=== PATIENT | female | born 1970 | race Two or more races ===

== ENCOUNTER 2020-09-07 11:35 | Outpatient (CLI) | payer OTHER, SELFPAY | END 2020-09-07 11:36 | disposition home or self-care (01) | LOC: ANHCOVIDVC 11:36 | PROVIDERS: PCP Family Medicine | DX: Z23 Encounter for immunization (principal) | CPT/HCPCS: 0001A; 91300 ==

== ENCOUNTER 2020-09-28 11:39 | Outpatient (CLI) | payer OTHER, SELFPAY | END 2020-09-28 11:40 | disposition home or self-care (01) | LOC: ANHCOVIDVC 11:39 | PROVIDERS: PCP Family Medicine | DX: Z23 Encounter for immunization (principal) | CPT/HCPCS: 0002A; 91300 ==

== ENCOUNTER 2022-06-23 10:28 | Outpatient (CLI) | payer BC, SELFPAY ==
--- NOTE | 2022-06-23 11:00 | NEURO_ITS ---
Impression: # Complains of numbness of hands. # Bilateral Carpal Tunnel Syndrome, right more than left. # No ulnar neuropathy. # Normal needle/EMG exam. Motor Nerve Conduction Upper Extremities Median Nerve Conduction Velocity (m/sec) Terminal Latency (msec) Response Voltage(mV) Elbow-Wrist Wrist Elbow Wrist Right 55 4.8 2 2 Left 60 3.4 3 3 Ulnar Nerve Conduction Velocity (m/sec) Terminal Latency (msec) Response Voltage(mV) Above Elbow Below Elbow Wrist Above Elbow Below Elbow Wrist Right 58 2.7 5 6 Left 60 2.0 5 4 F-Wave Latency Median (ms) Ulnar (ms) Right 27.7 26.7 Left 28.0 26.3 Sensory Nerve Conduction Upper Extremities Median Nerve Stimulation Terminal Latency (msec) Wrist/Digit Response Voltage (uV) Wrist Right 5.9/5.5 23/20 Left 3.8/3.9 28/33 Ulnar Nerve Stimulation Terminal Latency (msec) Wrist/Digit Response Voltage (uV) Wrist Right 2.4 42 Left 2.4 51 Radial Nerve Terminal Latency (msec) Response Voltage(mV) Right 1.8 14 Left 2.0 17 Left Right Muscles Examined Fibrillation Fasciculation Scarcity Voltage Duration Left Right Left Right Left Right Left Right Left Right Deltoid Biceps X X Brachioradialis Triceps X X Pronator Teres X X Ext Indicis X X Ext Digitorum X X Abd Poll Brev X X 1st Dorsal Interosseus X X Abd Dig Min MTDD
== END 2022-06-23 10:29 | disposition home or self-care (01) ==
LOC: ANHNEURO 10:33
PROVIDERS: PCP Family Medicine; Visit Provider Orthopaedic Surgery Hand Surgery
DX: M25.531 Pain in right wrist (principal); G56.03 Carpal tunnel syndrome, bilateral upper limbs
CPT/HCPCS: 95886; 95911